=== PATIENT | female | born 1970 | race American Indian/Alaskan Native ===

== ENCOUNTER 2017-02-26 09:22 | Emergency (ER) | payer OTHER ==
[2017-02-26] MEDS ORDERED: FLEXERIL PO ONE (13:48)
[2017-02-26] MEDS ORDERED: NORCO 5/325 PO ONE (13:48)
--- NOTE | 2017-02-26 14:21 | XRay Report ---
THORACIC SPINE: Trauma, tenderness. The bones are normally mineralized with well preserved vertebral height, alignment and interspace distances. No paraspinal soft tissue widening is noted. IMPRESSION: Normal study. Lumbar spine: Trauma, tenderness. In the frontal view there is a minimal dextroscoliosis with slight rotation. Vertebral height, alignment, and interspaces appear generally unremarkable. No acute finding. Impression: No acute or significant findings.
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
[2017-02-26 15:42] VITALS: BP 128/74
== END 2017-02-26 15:41 | disposition home or self-care (01) ==
LOC: ED 09:22
DX: S16.1XXA Strain of muscle, fascia and tendon at neck level, initial encounter (principal); G44.319 Acute post-traumatic headache, not intractable; M54.6 Pain in thoracic spine; E07.89 Other specified disorders of thyroid; R59.1 Generalized enlarged lymph nodes; D35.2 Benign neoplasm of pituitary gland; I10 Essential (primary) hypertension; E11.9 Type 2 diabetes mellitus without complications; E78.00 Pure hypercholesterolemia, unspecified; V49.49XA Driver injured in collision with other motor vehicles in traffic accident, initial encounter; Y93.9 Activity, unspecified; Y92.9 Unspecified place or not applicable; Y99.9 Unspecified external cause status
CPT/HCPCS: 70450; 72072; 72100; 72125; 99284

== ENCOUNTER 2019-12-08 08:56 | Outpatient (CLI) | payer OTHER ==
--- NOTE | 2019-12-08 11:54 | Mammography Report ---
DIGITAL SCREENING MAMMOGRAM WITH CAD, 12/08/2019 INDICATION: Routine screening mammography. TECHNIQUE: Digital bilateral 2D mammography was obtained in the craniocaudal and mediolateral obliq ue projections. This examination was interpreted with the benefit of Computer-Aided Detection analysi s. COMPARISON: 09/22/2014 FINDINGS: Breast Density: The breasts are heterogeneously dense, which may obscure small masses. There is no evidence of dominant mass, suspicious calcifications or architectural distortion in eithe r breast. A right upper outer biopsy clip. IMPRESSION: No mammographic evidence of malignancy. Follow up recommendation: Routine yearly BI-RADS Category 2: Benign. A "normal" or negative report should not discourage follow up or biopsy of a clinically significant f inding. A written summary of these findings will be mailed to the patient. The patient will be entered into a mammography reporting system which will generate a reminder letter for the patient's next appointmen t at the appropriate interval. The [employer] recommends yearly mammograms starting at age 40 and continuing as l jim as a woman is in good health. Breast MRI is recommended for women with an approximate 20-25% or greater lifetime risk of breast cancer, including women with a strong family history of breast or ova bonnie cancer or who have been treated for Hodgkin's disease. Signer Name: Giorgi Jones MD Signed: 12/08/2019 11:50 AM Workstation Name: [id number]
== END 2019-12-08 08:57 | disposition home or self-care (01) ==
LOC: SPVWC 08:56
PROVIDERS: ATTEND Family Medicine
DX: Z12.31 Encounter for screening mammogram for malignant neoplasm of breast (principal)
CPT/HCPCS: 77067